=== PATIENT | female | born 1955 | race Caucasian/White ===

== ENCOUNTER 2022-06-16 12:57 | Emergency (ER) | payer MEDICARE, MEDICAID ==
[~2022-06-16] VITALS: Ht 160 cm; Wt 100.0 kg
[2022-06-16] MEDS ORDERED: LORazepam 2 mg/ml vial IV ONE (13:10)
[2022-06-16 13:24] LABS: BASOPHILS % (AUTO) 0.7 % (0-1); EOSINOPHILS % (AUTO) 0.6 % (0-6); HEMATOCRIT 42.6 % (35.0-45.0); HEMOGLOBIN 14.1 g/dl (12.0-16.0); LYMPHOCYTES % (AUTO) 30.2 % (21-51); MEAN CORPUSCULAR HEMOGLOBIN 28.6 PG (27.0-31.0); MEAN CORPUSCULAR HGB CONC 33.1 g/dL (33.0-36.5); MEAN CORPUSCULAR VOLUME 86.3 FL (78-98); MEAN PLATELET VOLUME 8.3 FL (7.4-10.4); MONOCYTES # (AUTO) 0.6 X10'3 (0-0.9); MONOCYTES % (AUTO) 8.3 % (2-12); NEUTROPHILS % (AUTO) 60.2 % (42-75); PLATELET COUNT 302 X10'3 (140-440); RED BLOOD COUNT 4.94 X10'6 (4.20-5.60); RED CELL DISTRIBUTION WIDTH 14.3 % (11.5-14.5); WHITE BLOOD COUNT 6.6 X10'3 (4.5-11.0)
[2022-06-16 13:40] LABS: CLARITY,URINE CLOUDY (Clear); COLOR,URINE YELLOW (Yellow); GLUCOSE, URINE NEGATIVE (Neg); KETONES,URINE NEGATIVE (Neg); LEUKOCYTE ESTERASE ,URINE NEGATIVE (Neg); NITRITES, URINE NEGATIVE (Neg); OCCULT BLOOD,URINE NEGATIVE (Neg); PH,URINE 8.5 (4.8-8.0); PROTEIN,URINE NEGATIVE (Neg); UROBILINOGEN,URINE 0.2 E.U/dL (0.2-1.0)
[2022-06-16 13:46] LABS: ALANINE AMINOTRANSFERASE 31 U/L (12-78); ALBUMIN 3.7 G/DL (3.4-5.0); ALKALINE PHOSPHATASE 85 IU/L (46-116); ANION GAP 14 (8-16); ASPARTATE AMINO TRANSFERASE 20 U/L (10-37); BILIRUBIN,TOTAL 0.2 MG/DL (0.1-1.0); BLOOD UREA NITROGEN 22 MG/DL (7-18); BUN/CREATININE RATIO 28.9 (6.6-38.0); CALCIUM 9.6 MG/DL (8.5-10.1); CHLORIDE 102 MMOL/L (99-107); CREATININE 0.76 MG/DL (0.40-0.90); GLUCOSE 126 MG/DL (70-104); SODIUM 138 MMOL/L (135-145); TOTAL CARBON DIOXIDE 22.2 MMOL/L (24-32); TOTAL PROTEIN 7.3 G/DL (6.4-8.2); eGFR 76 ML/MIN
[2022-06-16 13:58] LABS: UA COLLECTION TYPE CLN CATCH MIDSTREAM
[2022-06-16 14:03] LABS: AMORPHOUS PHOSPHATES 2+
[2022-06-16 14:04] LABS: BACTERIA,URINE NONE SEEN /HPF (Neg); MUCUS STRANDS NONE SEEN /LPF (Neg); RBC,URINE NONE SEEN /HPF (0-2); SQUAMOUS EPITHELIAL CELL,UR FEW /LPF (FEW); TRANSITIONAL EPI CELLS,URINE FEW /HPF; WBC,URINE 0-4 /HPF (0-4)
[2022-06-16 14:07] LABS: URINE AMPHETAMINE SCREEN NEGATIVE (Neg); URINE BARBITUATE SCREEN NEGATIVE (Neg); URINE BENZODIAZEPINES SCREEN NEGATIVE (Neg); URINE CANNABINOID SCREEN NEGATIVE (Neg); URINE COCAINE SCREEN NEGATIVE (Neg); URINE METHADONE SCREEN NEGATIVE (Neg); URINE OPIATE SCREEN POSITIVE (Neg); URINE PHENCYCLIDINE SCREEN NEGATIVE (Neg)
[2022-06-16 14:07] LABS: POTASSIUM 3.6 MMOL/L (3.5-5.1)
--- NOTE | 2022-06-16 15:00 | NUR ---
PATIENT AWAKE, ALERT, SITTING UP IN BED, AT BEDSIDE, PATIENT STATES SHE HAS IMPROVED SINCE ARRIVAL TO ED. STATES SHE NO LONGER FEELS "LIKE I AM SHAKING INSIDE".
[2022-06-16 15:01] VITALS: BP 170/63
--- NOTE | 2022-06-16 15:37 | NUR ---
CALL TO [facility] AT THIS TIME TO OBTAIN ALLERGIES AND PATIENT CAN NOT RECALL.
== END 2022-06-16 15:50 | disposition home or self-care (01) ==
LOC: ER 12:57
DX: R07.89 Other chest pain (principal); R45.1 Restlessness and agitation; M79.602 Pain in left arm; R00.2 Palpitations; Z88.0 Allergy status to penicillin; Z88.8 Allergy status to other drugs, medicaments and biological substances; R41.82 Altered mental status, unspecified
CPT/HCPCS: 36415; 70450; 71045; 80053; 80305; 81001; 82948; 83880; 84484; 85025; 93005; 96374; 99285; J2060

== ENCOUNTER 2024-11-01 14:24 | Day surgery (SDC) | payer MEDICARE, MEDICAID ==
[~2024-11-01] VITALS: Ht 160 cm; Wt 80.0 kg
[~2024-11-01 14:24] MED LIST: ACET-812 PO; CIDE250T PO; DIPH25CA83 PO; ERGO400C PO; IBUP-2697 PO; LACT1CAP65 PO; MAGN400C PO; MELA2.5T16 PO; VITAMIN K PO; ZINC220T3 PO
[2024-11-01 14:52] VITALS: BP 202/89; PULSE 49; RESP 15
[2024-11-01] MEDS ORDERED: simethicone 40mg/0.6ml oral drops 30ml ONE (17:42)
[2024-11-01] MEDS ORDERED: morphine 4 MG/ML inj SYRINge IV PRN (17:45)
[2024-11-01] MEDS ORDERED: ringers solution, lacted 1,000 ML IV SCH (17:45)
[2024-11-01] MEDS ORDERED: meperidine/PF 25mg/ml syringe IV PRN ×3 (17:45)
[2024-11-01] MEDS ORDERED: morphine 2 MG/ML inj. syringe IV PRN (17:45)
[2024-11-01] MEDS ORDERED: ondansetron/PF 4mg/2ml inj IV PRN (17:45)
[2024-11-01] MEDS ORDERED: acetaminophen 1,000mg/100ml IV 100 ML IV PRN (17:45)
[2024-11-01] MEDS ORDERED: proCHLORperazine 10 MG/2 ml inj IV PRN (17:45)
[2024-11-01] MEDS ORDERED: propofol inj 20 ML IV ONE ×2 (18:12)
[2024-11-01 18:29] VITALS: BP 95/75; PULSE 41; RESP 16; O2SAT 99
[2024-11-01 18:40] VITALS: BP 127/65; PULSE 44; RESP 13; O2SAT 100
[2024-11-01 18:50] VITALS: BP 174/68; PULSE 46; RESP 16; O2SAT 99
[2024-11-01 19:00] VITALS: BP 172/68; PULSE 40; RESP 9; O2SAT 100
== END 2024-11-01 19:09 | disposition home or self-care (01) ==
LOC: GI LAB 14:24
PROVIDERS: ATTEND Internal Medicine Gastroenterology
DX: R10.30 Lower abdominal pain, unspecified (principal); K59.01 Slow transit constipation; I49.5 Sick sinus syndrome; Z88.8 Allergy status to other drugs, medicaments and biological substances; Z90.710 Acquired absence of both cervix and uterus; Z98.890 Other specified postprocedural states
CPT/HCPCS: 45378; 93005; J0131; J0780; J2175; J2270; J2405; J2704; J7030; J7120; Z7506; Z7512; Z7610